=== PATIENT | male | born 1970 | race Two or more races ===

== ENCOUNTER 2024-06-08 08:01 | Emergency (ER) | payer OTHER ==
[~2024-06-08] VITALS: Ht 182.9 cm; Wt 99.8 kg
[2024-06-08] MEDS ORDERED: MOUNJARO10 MG/0.5 SUBCUTANEO (08:38)
[2024-06-08] MEDS ORDERED: ATORVASTATIN CA20 MG PO (08:38)
[2024-06-08] MEDS ORDERED: CHILDREN'S ASPI81 MG PO (08:39)
[2024-06-08] MEDS ORDERED: CANDESARTAN CILE8 M1 PO (08:39)
[2024-06-08] MEDS ORDERED: 0.9 % SODIUM CHLORIDE 1,000 ML IV STA (08:59)
[2024-06-08] MEDS ORDERED: MEPERIDINE HCL/PF 25 MG/ML VIAL IV STA (09:01)
[2024-06-08] MEDS ORDERED: ONDANSETRON HCL 2 MG/ML VIAL IV ONE (09:15)
[2024-06-08 09:41] LABS: HEMATOCRIT 46.5 % (39.0-48.0); HEMOGLOBIN 16.2 g/dL (13-16.00); MEAN CELL VOLUME 86.5 fL (80.0-100.00); MEAN CORPUSCULAR HEMOGLOBIN 30.1 pg (27.00-32.0); MEAN CORPUSCULAR HGB CONC 34.8 g/dl (32.0-36.0); PLATELET COUNT 304 K/uL (150-450); RED BLOOD COUNT 5.38 M/uL (4.00-6.00)
[2024-06-08 10:08] LABS: ALBUMIN 4.6 gm/dL (3.4-5.0); BILIRUBIN TOTAL 0.8 mg/dL (0.3-1.2); BILIRUBIN,CONJUGATED 0.18 mg/dL (0.0-0.2); BILIRUBIN,UNCONJUGATED 0.62 mg/dL (0.0-0.6); CREATININE SERUM 1.23 mg/dL (0.70-1.30); GFR 60.87; POTASSIUM 4.2 mEq/L (3.5-5.1); TOTAL PROTEIN 8.6 gm/dL (6.4-8.2)
[2024-06-08 11:58] LABS: PH,URINE 5.5 (5.0-8.0); URINE APPEARANCE Clear; URINE BILIRRUBIN Negative (NEGATIVE); URINE BLOOD Negative; URINE COLOR Yellow; URINE GLUCOSE Negative (NEGATIVE); URINE KETONE Trace (NEGATIVE); URINE LEUKOCYTE Negative; URINE NITRATE Negative; URINE PROTEIN Negative (NEGATIVE); URINE UROBILINOGEN 0.2 E.U./dl
[2024-06-08 12:05] LABS: URINE BACTERIA 18.8 uL (0.0-1933); URINE CAST 2.59 uL (0.0-1.40); URINE EPITHELIAL CELLS 9.7 uL (0.0-38.8); URINE RBC 13.8 uL (0.0-20.8); URINE WBC 4.6 uL (0.0-23.2)
[2024-06-08 15:03] LABS: HEMATOCRIT 40.6 % (39.0-48.0); HEMOGLOBIN 13.9 g/dL (13-16.00); MEAN CELL VOLUME 86.2 fL (80.0-100.00); MEAN CORPUSCULAR HEMOGLOBIN 29.6 pg (27.00-32.0); MEAN CORPUSCULAR HGB CONC 34.4 g/dl (32.0-36.0); PLATELET COUNT 277 K/uL (150-450); RED BLOOD COUNT 4.71 M/uL (4.00-6.00); RED CELL DISTRIBUTION WIDTH 13.8 % (11.5-14.5)
== END 2024-06-08 15:31 | disposition home or self-care (01) ==
LOC: ER 08:02
PROVIDERS: General Practice
DX: R10.9 Unspecified abdominal pain (principal); R11.10 Vomiting, unspecified; E11.9 Type 2 diabetes mellitus without complications
CPT/HCPCS: 36415; 74177; Q9965